=== PATIENT | female | born 1960 | race Caucasian/White ===

== ENCOUNTER → 2018-03-16 12:09 | Outpatient (CLI) | payer OTHER, SELFPAY ==
--- NOTE | 2018-03-16 13:00 | MRI_ITS ---
STUDY: MRI BRAIN WITH AND WITHOUT CONTRAST REASON FOR EXAM: Female, 57 years old. tremors in left hand, foot,leg TECHNIQUE: Standardized multiplanar fat and water weighted pulse sequences were obtained. 10 ml of Gadavist contrast material was administered intravenously for the contrast portion of the examination. COMPARISON: None. FINDINGS: Normal size of the ventricles and extra-axial spaces for the patient's age. There are a limited number of small white matter hyperintensities, distributed throughout the deep white matter tracts of the cerebral hemispheres, consistent with mild chronic white matter ischemic changes. Normal bilateral basal ganglia. Normal thalami. There is no extra-axial fluid accumulation. Normal flow voids within the major intracranial circulation suggesting patency by spin echo criteria. Normal venous enhancement. There is no enhancing intra-axial or extra-axial abnormality. Normal sella turcica, pituitary gland, infundibular stalk, optic chiasm and hypothalamus. Normal tectal plate and pineal gland. Normal midbrain, wiliam and medulla. Normal cerebellum. Normal basal cisterns. Normal bilateral temporal bones. Normal bilateral internal auditory canals. No demonstrated orbital abnormality, within the constraints of a routine brain study. Normal visualized paranasal sinuses. Normal calvarium and skull base. Normal visualized soft tissue structures. Normal visualized upper cervical spine. MRI/Brain W/WO Contrast IMPRESSION: Involutional changes of the brain, as described above. Electronically Signed: Kate Agosto MD at 15:59 EDT Tel , Service support ,
== END ==
PROVIDERS: Family Provider Internal Medicine; PCP Internal Medicine; Visit Provider Physician Assistant Medical
DX: R25.1 Tremor, unspecified (principal); R53.83 Other fatigue
CPT/HCPCS: 70553; A9585

== ENCOUNTER → 2019-02-01 07:53 | Outpatient (CLI) | payer OTHER, SELFPAY ==
--- NOTE | 2019-02-01 10:05 | NEURO ---
NCS and/or EMG Patient Report Ordering Doctor: brianna, DATE OF SERVICE: 02/01/19 This is a bilateral lower extremity nerve conduction study and a right lower extremity EMG performed on this 58-year-old female with a history of paresthesias in her feet. There is a history of back pain which improved after lumbar epidural steroid injection but this had no effect on her lower extremity pain. She is healthy otherwise although there is a history of recently diagnosed Parkinson's. Bilateral lower extremity sensory and motor nerve conduction study is performed. The left superficial peroneal sensory response is absent in the right medial plantar sensory response is absent. The other sensory responses are intact. The motor responses from the common peroneal motor nerves and the tibial motor nerves demonstrate relatively preserved distal latencies amplitudes, but low normal conduction velocities. F-wave latencies are mild to moderately diffusely prolonged and H reflex responses from the tibial nerves bilaterally demonstrate reduced amplitude. Right lower extremity needle electromyography is performed. Muscles evaluated included the extensor digitorum brevis, abductor houses, medial gastrocnemius, anterior tibialis, vastus medialis and vastus lateralis muscles. All muscles demonstrated normal insertional activity with absence of abnormal electrophysiologic activity. Her unit recruitment pattern and amplitude were normal in all muscles tested. Pathologic spontaneous activity was absent. 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 Further evaluation could include hepatic studies, serum protein electrophoresis, and vitamin levels.
== END ==
PROVIDERS: Family Provider Internal Medicine; PCP Internal Medicine
DX: G57.91 Unspecified mononeuropathy of right lower limb (principal); G57.92 Unspecified mononeuropathy of left lower limb; M79.671 Pain in right foot; M79.672 Pain in left foot
CPT/HCPCS: 95886; 95912

== ENCOUNTER → 2020-11-05 06:34 | Outpatient (CLI) | payer OTHER, SELFPAY ==
--- NOTE | 2020-11-05 09:36 | NEURO ---
NCS and/or EMG Patient Report Ordering Doctor: Elvi Irving DATE OF SERVICE: 11/05/20 Indication: Intermittent burning and tingling in the hands for the last several months. Symptoms are bilateral, but more prominent in the right upper extremity. Examination of the left upper extremity was not performed due to a recent fracture in the left hand which is now casted. Findings: Nerve conduction studies were performed in the right upper extremity. The right median motor study recording the abductor pollicis brevis showed a normal amplitude, prolonged distal latency and borderline conduction velocity. The right ulnar motor study recording the abductor digiti minimi showed a normal amplitude, normal distal latency and normal conduction velocity. No conduction block or focal slowing was present across the elbow. The right median sensory response recording digit two showed a normal amplitude, prolonged latency and markedly slowed conduction velocity. The right ulnar sensory response recording digit five showed a normal amplitude, latency and conduction velocity. The right radial sensory response recording over the extensor snuff box showed a normal amplitude, latency and conduction velocity. Right median-ulnar mixed palmar latencies showed a prolonged median latency compared to the ulnar. Needle EMG of the right upper extremity and cervical paraspinal muscles was performed. No denervation was seen in any muscle. The abductor pollicis brevis muscle demonstrate motor units which were slightly large, long duration and polyphasic with a reduced recruitment pattern. All motor unit morphology, activation and recruitment patterns were normal. Impression: This is an abnormal study. There is electrophysiologic evidence of a median neuropathy across the right wrist. The pathophysiology is predominantly demyelination. These findings are compatible with the clinical diagnosis of carpal tunnel syndrome. In addition, there is no electrophysiologic evidence of a superimposed cervical radiculopathy in the right upper extremity. Ruben Casillas D.O.
== END ==
PROVIDERS: PCP Internal Medicine; Referring Provider Physician Assistant Medical; Visit Provider Physician Assistant Medical
DX: G62.9 Polyneuropathy, unspecified (principal); R20.2 Paresthesia of skin; Z86.69 Personal history of other diseases of the nervous system and sense organs
CPT/HCPCS: 95886; 95910